=== PATIENT | male | born 2000 | race African-American/Black ===

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

== ENCOUNTER 2021-01-30 22:53 | Emergency (ER) | payer OTHER ==
[~2021-01-30] VITALS: Ht 177.8 cm; Wt 75.0 kg
[~2021-01-30 22:53] MED LIST: CEPH500C PO
[2021-01-30] MEDS ORDERED: DIPH,PERTUSS(ACELL),TET VAC/PF 0.5 ML SYRINGE. VAX IM ONE (23:45)
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
--- NOTE | 2021-01-31 00:57 | RAD ---
INDICATION: Trauma to the head and orbits COMPARISON: None. TECHNIQUE: Axial CT images obtained through the head and orbits. One or more of the following individualized dose reduction techniques were utilized for this examinat ion: 1. Automated exposure control; 2. Adjustment of the mA and/or kV according to patient size; 3 . Use of iterative reconstruction technique. FINDINGS: Head: No midline shift. Suprasellar cistern is not effaced. No hydrocephalus. No acute intracranial hemorrh age. Orbits: There is a soft tissue laceration seen in the right supraorbital region as well as within the right o rbital region extending superior to the right globe with some air and edema in the area. A definite a ssociated fracture is not seen. IMPRESSION: * No acute intracranial hemorrhage. * Soft tissue laceration and swelling is seen in the right supraorbital region as well as extending superior to the right globe within the right orbit. Electronically signed by: Seth Ivan MD (01/31/2021 12:55 AM) [id number]
[2021-01-31] MEDS ORDERED: FLUORESCEIN OPHTH TEST STRIP. OU ONE (01:30)
[2021-01-31] MEDS ORDERED: TETRACAINE 0.5% OPHTH SOLUTION 4ML BOTTLE. OU ONE (01:30)
[2021-01-31] MEDS ORDERED: CEPH500T PO (01:58)
[2021-01-31] MEDS ORDERED: CEPHALEXIN 250 MG CAPSULE. PO SCH (02:00)
[2021-01-31 02:08] VITALS: BP 129/73
== END 2021-01-31 02:18 | disposition home or self-care (01) ==
LOC: ER 22:53 → EEVIPCON 22:53 → ER 01-31 02:18
DX: S01.81XA Laceration without foreign body of other part of head, initial encounter (principal); K21.9 Gastro-esophageal reflux disease without esophagitis; Z91.018 Allergy to other foods; Y04.0XXA Assault by unarmed brawl or fight, initial encounter; Y93.89 Activity, other specified; Y92.89 Other specified places as the place of occurrence of the external cause; Y99.8 Other external cause status
CPT/HCPCS: 12011; 70450; 70480; 90471; 90715; 99285-25